=== PATIENT | female | born 1990 | race Caucasian/White ===

== ENCOUNTER → 2016-04-01 | Outpatient (REF) | payer OTHER | LOC: M LAB REF 13:19 | PROVIDERS: ATTEND Specialist | DX: Z34.83 Encounter for supervision of other normal pregnancy, third trimester (principal); Z36 Encounter for antenatal screening of mother; Z3A.00 Weeks of gestation of pregnancy not specified ==

== ENCOUNTER 2016-04-14 16:58 | Outpatient (CLI) | payer OTHER ==
[~2016-04-14] VITALS: Ht 172.7 cm; Wt 95.0 kg
[~2016-04-14 16:58] MED LIST: COLD1MIS PO; PRENTAB55 PO
[2016-04-14] MEDS ORDERED: ROBI30SU PO (17:32)
[2016-04-14 17:38] VITALS: BP 124/66
[2016-04-14 18:10] VITALS: BP 125/78
[2016-04-14] MEDS ORDERED: LR 1,000 ML IV SCH (18:44)
[2016-04-14] MEDS ORDERED: LACTATED RINGER'S 1000 ML IV STA (18:44)
[2016-04-14 19:21] VITALS: BP 125/72
[2016-04-14 19:26] LABS: BASO % 0.4 % (0.0-1.0); EOS % 0.4 % (0.0-3.0); LARGE UNSTAINED CELL # 0.1 K/mm3 (0.0-0.4); LARGE UNSTAINED CELL % 1.1 % (0.0-4.0); LYMPH # 1.5 K/mm3 (1.5-6.5); LYMPH % 13.4 % (24.0-44.0); MEAN CORPUSCULAR HEMOGLOBIN 29.6 pg (27.0-33.0); MEAN CORPUSCULAR HGB CONC 34.4 g/dl (32.0-36.5); MEAN CORPUSCULAR VOLUME 85.9 fl (80.0-96.0); MONO # 0.4 K/mm3 (0.0-0.8); MONO % 3.7 % (0.0-5.0); NEUTROPHILS # 9.3 K/mm3 (1.8-7.7); PLATELET COUNT, AUTOMATED 273 k/mm3 (150-450); RED CELL DISTRIBUTION WIDTH 13.3 % (11.5-14.5); WHITE BLOOD COUNT 11.5 K/mm3 (4.0-10.0)
[2016-04-14 19:52] LABS: ALBUMIN 2.7 GM/DL (3.2-5.2); ALBUMIN/GLOBULIN RATIO 0.71 (1.00-1.93); ALKALINE PHOSPHATASE 241 U/L (45-117); ALT/SGPT 12 U/L (12-78); ANION GAP 12 MEQ/L (8-16); AST/SGOT 3 U/L (15-37); BILIRUBIN,TOTAL 0.2 MG/DL (0.2-1.0); BLOOD UREA NITROGEN 10 MG/DL (7-18); CALCIUM LEVEL 10.1 MG/DL (8.5-10.1); CARBON DIOXIDE LEVEL 23 MEQ/L (21-32); CHLORIDE LEVEL 105 MEQ/L (98-107); CREATININE FOR GFR 0.73 MG/DL (0.55-1.02); GLOMERULAR FILTRATION RATE > 60.0 (>60); GLUCOSE, FASTING 91 MG/DL (70-105); POTASSIUM SERUM 4.1 MEQ/L (3.5-5.1); SODIUM LEVEL 140 MEQ/L (136-145); TOTAL PROTEIN 6.5 GM/DL (6.4-8.2)
[2016-04-14 20:20] VITALS: BP 135/73
== END 2016-04-14 20:30 | disposition home or self-care (01) ==
LOC: M LDO 16:58
PROVIDERS: ATTEND Specialist
DX: O99.89 Other specified diseases and conditions complicating pregnancy, childbirth and the puerperium (principal); R11.2 Nausea with vomiting, unspecified; Z3A.38 38 weeks gestation of pregnancy

== ENCOUNTER 2016-04-19 05:30 | Inpatient (IN) | payer OTHER, BC ==
[~2016-04-19] VITALS: Ht 172.7 cm; Wt 95.0 kg
[2016-04-19] VITALS (7 sets, daily range): BP systolic 120–129; BP diastolic 60–71
[~2016-04-19 05:30] MED LIST changes: +ROBI30SU PO
[2016-04-19] MEDS ORDERED: PRENTAB9 PO (05:33)
[2016-04-19] MEDS ORDERED: BICITRA 30ML SOLN UDC PO ONE (06:30)
[2016-04-19] MEDS ORDERED: LR 800 ML IV SCH (06:30)
[2016-04-19 06:39] LABS: BASO # 0.2 K/mm3 (0.0-0.2); BASO % 1.2 % (0.0-1.0); EOS # 0.1 K/mm3 (0.0-0.50); EOS % 0.8 % (0.0-3.0); LARGE UNSTAINED CELL # 0.2 K/mm3 (0.0-0.4); LARGE UNSTAINED CELL % 1.4 % (0.0-4.0); LYMPH # 2.7 K/mm3 (1.5-6.5); LYMPH % 19.1 % (24.0-44.0); MEAN CORPUSCULAR HEMOGLOBIN 28.8 pg (27.0-33.0); MEAN CORPUSCULAR HGB CONC 33.6 g/dl (32.0-36.5); MEAN CORPUSCULAR VOLUME 85.6 fl (80.0-96.0); MONO # 0.5 K/mm3 (0.0-0.8); MONO % 3.7 % (0.0-5.0); NEUTROPHILS # 9.8 K/mm3 (1.8-7.7); NEUTROPHILS % 73.7 % (36.0-66.0); PLATELET COUNT, AUTOMATED 270 k/mm3 (150-450); WHITE BLOOD COUNT 13.2 K/mm3 (4.0-10.0)
[2016-04-19] MEDS ORDERED: LR 1,000 ML IV SCH (07:00)
[2016-04-19] MEDS ORDERED: METOCLOPRAMIDE INJ 10MG/2ML VIAL (J2765) IV PRN (07:34)
[2016-04-19] MEDS ORDERED: ONDANSETRON 4MG/2ML VIAL (J2405) IV PRN ×3 (07:34→09:00)
[2016-04-19] MEDS ORDERED: NALOXONE INJ 0.4 MG/1 ML VIAL (J2310) IV PRN ×2 (07:34)
[2016-04-19] MEDS ORDERED: NALBUPHINE HCL 10 MG/ML AMP (J2300) IV PRN ×2 (07:34→09:00)
[2016-04-19] MEDS ORDERED: MORPHINE PRES-FREE INJ 10 MG/10 ML VIAL (J2274) As Ordered ONE (07:45)
[2016-04-19] MEDS ORDERED: OXYTOCIN INJ 10 UNITS/ML VIAL (J2590) As Ordered ONE (07:45)
[2016-04-19] MEDS ORDERED: PHENYLephrine HCL 500 MCG/5 ML (100MCG/ML) SYRINGE (J2370) As Ordered ONE (07:51)
[2016-04-19] MEDS ORDERED: ePHEDrine SULFATE 25 MG/5 ML(5MG/ML) SYRINGE As Ordered ONE (08:08)
[2016-04-19] MEDS ORDERED: ONDANSETRON 4MG/2ML VIAL (J2405) As Ordered ONE (08:09)
[2016-04-19] MEDS ORDERED: KETOROLAC 60 MG/2 ML VIAL (J1885) As Ordered ONE (08:09)
[2016-04-19] MEDS: LR 1,000 ML IV SCH ×2 (08:32→16:32)
[2016-04-19] MEDS ORDERED: DOCUSATE SODIUM 100 MG CAP PO PRN (08:45)
[2016-04-19] MEDS ORDERED: PERCOCET 5MG/325MG TAB PO PRN (08:45)
[2016-04-19] MEDS ORDERED: MEASLES,MUMPS,RUBELLA VACCINE INJ (MMR-II) (90707) SC SCH (08:45)
[2016-04-19] MEDS ORDERED: RHOGAM 300 MCG (1500 IU) INJ (J2790) IM SCH (08:45)
[2016-04-19] MEDS ORDERED: METHYLERGONOVINE MALEATE 0.2 MG/ML VIAL (J2210) As Ordered ONE (08:45)
[2016-04-19] MEDS ORDERED: OXYTOCIN DRIP 30 UNITS in APPROPRIATE DILUENT 1 EA IV ONE (08:45)
[2016-04-19] MEDS: PRENATAL VITAMIN TAB PO SCH (09:00)
[2016-04-19] MEDS ORDERED: fentaNYL 100 MCG/2 ML INJECTION (J3010) IV PRN (09:00)
[2016-04-19] MEDS ORDERED: diphenhydrAMINE INJ 50MG/ML VIAL (J1200) IV PRN (09:00)
[2016-04-19] MEDS ORDERED: MEPERIDINE INJ 25 MG/ML VIAL (J2175) IV PRN (09:00)
[2016-04-19] MEDS ORDERED: METHYLERGONOVINE MALEATE 0.2 MG/ML VIAL (J2210) IM ONE (09:15)
[2016-04-19] MEDS: KETOROLAC 30 MG/ML VIAL (J1885) IV SCH ×2 (14:58→20:45)
--- NOTE | 2016-04-19 17:06 | RO ---
DATE OF OPERATION: 04/19/2016 PREOPERATIVE DIAGNOSIS: 39 week gestation breech presentation. POSTOPERATIVE DIAGNOSIS: 39 week gestation breech presentation. PROCEDURE: Primary low transverse section. SURGEON: Romie Bar MD CLINICAL COURIER: Dr. Tiffani Gonzalez ANESTHESIA: Spinal. ESTIMATED BLOOD LOSS: 800 mL. FINDINGS: 8 pound 0 ounce or 3616 female infant, 8 and 9. Loose nuchal cord times one. Compound breech presentation. Apparent arcuate shape of the uterus. Normal fallopian tubes and ovaries. OPERATIVE SUMMARY: The patient was taken to the operating room where spinal anesthesia was induced. She was prepped and draped in a sterile fashion in supine position. A Joseph catheter was placed. A Pfannenstiel skin incision was made with a scalpel and carried through to the fascia. The fascia was nicked and extended. The fascia was dissected off the rectus muscles. The peritoneal cavity was entered. A bladder flap was created. A curvilinear incision was made in the lower uterine segment until clear fluid was noted. This was extended manually. The infant was delivered from the compound breech presentation using standard maneuvers without difficulty. The cord was doubly clamped and cut. The infant was handed off to the awaiting nurses. The placenta was expressed. The uterus was exteriorized and cleared of clots and debris. The uterine incision was closed with #0 Vicryl in a running locked fashion. A second imbricating layer of #0 Vicryl was placed. The uterus was placed back in the abdominal cavity. The peritoneum was closed with #2-0 Vicryl in a running fashion. The fascia was closed with #0 Vicryl in a running fashion. The subcutaneous tissue was irrigated. The deep layers were closed with #3-0 chromic. Skin was closed with #4-0 Monocryl subcuticular sutures. Sponge, needle and instrument counts were correct.
[2016-04-20] MEDS: LR 1,000 ML IV SCH ×3 (00:32→16:32)
[2016-04-20] MEDS ORDERED: OXYC1TAB23 PO (02:02)
[2016-04-20 02:20] VITALS: BP 129/63
[2016-04-20] MEDS: KETOROLAC 30 MG/ML VIAL (J1885) IV SCH ×2 (02:45→09:32)
[2016-04-20 06:15] VITALS: BP 121/59
[2016-04-20 07:02] LABS: MEAN CORPUSCULAR HEMOGLOBIN 28.6 pg (27.0-33.0); MEAN CORPUSCULAR HGB CONC 32.4 g/dl (32.0-36.5); MEAN CORPUSCULAR VOLUME 88.4 fl (80.0-96.0); RED CELL DISTRIBUTION WIDTH 14.2 % (11.5-14.5); WHITE BLOOD COUNT 10.8 K/mm3 (4.0-10.0)
[2016-04-20] MEDS: PRENATAL VITAMIN TAB PO SCH (09:32)
[2016-04-20 09:55] VITALS: BP 130/63
--- NOTE | 2016-04-20 10:13 | REP ---
Urinary tract sonogram: History: Family history of polycystic kidney disease. Comparison: No comparison study. Findings: Scanning at the level of the urinary bladder shows no abnormality. Renal cortical echogenicity pattern is normal bilaterally and contours are smooth. There is no evidence of hydronephrosis, cyst, mass, or calculus in either kidney. The right kidney measures 11.0 x 6.3 x 5.1 cm. Left renal dimensions are 12.6 x 5.9 x 5.2 cm. Impression: Normal urinary tract sonography. Signed by Evelio King MD 04/20/2016 10:05 A
[2016-04-20] MEDS: PERCOCET 5MG/325MG TAB PO PRN ×2 (13:58→20:02)
[2016-04-20 14:00] VITALS: BP 137/74
[2016-04-20] MEDS: IBUPROFEN 800 MG TAB PO SCH (17:13)
[2016-04-20 18:04] VITALS: BP 148/70
[2016-04-21] MEDS: IBUPROFEN 800 MG TAB PO SCH ×2 (00:49→08:53)
[2016-04-21] MEDS: PERCOCET 5MG/325MG TAB PO PRN ×2 (00:51→08:57)
[2016-04-21 05:57] VITALS: BP 139/82
[2016-04-21] MEDS ORDERED: MOTR200T44 PO (07:59)
[2016-04-21] MEDS ORDERED: COLA100C PO ×2 (07:59→08:07)
[2016-04-21] MEDS ORDERED: IBUP600T26 PO (08:06)
[2016-04-21] MEDS: PRENATAL VITAMIN TAB PO SCH (08:52)
== END 2016-04-21 09:50 | disposition home or self-care (01) | DRG 766 ==
LOC: M LDI 05:30 → M OBS 10:36
PROVIDERS: ADMIT Specialist; ATTEND Specialist
PROC: 10D00Z1 Extraction of Products of Conception, Low, Open Approach (ICD-10-PCS; principal; 2016-04-19 07:30)
DX: O32.1XX0 Maternal care for breech presentation, not applicable or unspecified (principal); Z3A.39 39 weeks gestation of pregnancy; O34.03 Maternal care for unspecified congenital malformation of uterus, third trimester; O69.81X0 Labor and delivery complicated by cord around neck, without compression, not applicable or unspecified; Q51.810 Arcuate uterus; Z37.0 Single live birth